=== PATIENT | female | born 1945 | race Caucasian/White ===

== ENCOUNTER 2016-12-07 14:28 | Inpatient (IN) | payer MEDICARE ==
[~2016-12-07] VITALS: Ht 170.2 cm; Wt 85.0 kg
[2016-12-07 14:31] VITALS: BP 105/71; PULSE 105; RESP 17; O2SAT 95
--- NOTE | 2016-12-07 14:40 | ED.REPORT ---
HPI-General Illness Date of Service Dec 07, 2016 ED Provider: The patient is a 71 year old female with no known medical history, who presents to the emergency department complaining of abdominal cramping that first began about 3 weeks ago. She initially thought she had a "flu bug" but her symptoms have worsened in the last few days. She has been having multiple episodes of diarrhea with bloody mucousy stools. She also reports feeling gassy and has not wanted to eat. She has had a fever intermittently. She was seen by a hot knife cutter last week and turned in stool sample kits on Friday. She denies dizziness, chest pain, or shortness of breath. She denies recent antibiotic use or recent travel. She does not take any medications regularly. Nursing Notes Stated Complaint: MAJOR ABDOMINAL DISTRESS Chief Complaint: Female Abdominal Pain Nursing Notes Reviewed: Yes Allergies: Coded Allergies: No Known Allergies (Unverified , 12/07/16) General Time Seen by MD: 14:39 Chief Complaint Abdominal pain Hx Obtained From: Patient Arrived By: Walk-in Sudden in Onset?: No Onset Occurred: More than a week ago... Symptom Duration: Since onset Location: : Abdomen Quality: Cramping, Painful Severity: Current: Moderate Severity: Maximum: Severe Recent Healthcare: No recent hospitalization, Recent doctor visit Similar Sx Previous: No Past Medical History Past Medical History Denies Past Surgical History Hernia repair Family History Noncontributory Smoking History Unknown if Ever Smoker Social History Other Social History: Local resident Ambulatory Status Independent Review of Systems +decreased appetite, feeling gassy Full Review of Systems Constitutional: Reports: Fever (intermittent) Ears / Nose / Throat: Reports: Ear ringing left (chronic, for years) Respiratory: Denies: Shortness of breath Cardiovascular: Denies: Chest pain GI: Reports: Abdominal pain, Anorexia, Diarrhea, Mucousy stool (with blood) Neurologic: Denies: Dizziness Complete sys rev & neg: except as marked. Physical Exam Vital Signs Vital Signs Date Time Temp Pulse Resp B/P Pulse Ox O2 Delivery O2 Flow Rate FiO2 12/07/16 16:45 37.1 105 20 117/60 98 Room Air 12/07/16 14:31 37.1 105 17 105/71 95 Room Air Initial VS: Reviewed Head / Eyes: Atraumatic, Normocephalic, PERRL Neck: Supple, Non-tender, Full range of motion Respiratory: Breath sounds normal, Clear to auscultation, No respiratory distress Lymphatic: No lymphadenopathy Extremities: Vascular intact, Neuro intact, No swelling, No tenderness Skin: Warm, Dry, No cyanosis Neurologic: Alert, Oriented, Nonfocal Psychiatric: Mood/affect normal, Behavior normal, Normal thought content General/Constitutional: Awake, Cooperative Appearance / Presentation: Positive: Ill appearing/not toxic, Uncomfortable Cardiovascular: Regular rhythm, Heart sounds NL, No murmurs, No rubs, Peripheral circulation NL, Pulses = bilaterally Heart Rate / Rhythm: Positive: Tachycardia Abdomen: Atraumatic, Soft, Non-tender, No guarding, No rebound, BS normoactive , No distention, No hernia, No palpable mass, No pulsatile mass Interpretation & Diagnostics Lab Results Interpretation Result Diagram: 12/07/16 1520 12/07/16 1520 Test 12/07/16 15:20 White Blood Count 12.2th/mm3 (3.8-10.1) Red Blood Count 4.80mil/mm3 (3.90-5.20) Hemoglobin 14.7g/dL (12.0-15.6) Hematocrit 42.9% (35.0-46.0) Mean Corpuscular Volume 89.4fL (81-100) Mean Corpuscular Hemoglobin 30.6pg (27.0-35.0) Mean Corpuscular Hemoglobin Concent 34.3% (32.0-37.0) Red Cell Distribution Width 12.3% (12.3-15.4) Platelet Count 374bil/L (150-400) Neutrophils (%) (Auto) 68.7% (40-74) Lymphocytes (%) (Auto) 13.9% (14-46) Monocytes (%) (Auto) 14.7% (4-12) Eosinophils (%) (Auto) 0.7% (0-5) Basophils (%) (Auto) 1.5% (0-3) Sodium Level 137mEq/L (134-144) Potassium Level 3.4mEq/L (3.5-5.2) Chloride Level 97mEq/L (97-108) Carbon Dioxide Level 25mmol/L (18-29) Blood Urea Nitrogen 4mg/dL (8-27) Creatinine 0.46mg/dL (0.57-1.00) Estimat Glomerular Filtration Rate 193mL/min (>59) Glucose Level 109mg/dL (60-99) Lactic Acid Level 1.0mmol/L (0.4-2.0) Calcium Level 8.7mg/dL (8.5-10.1) Magnesium Level 2.3mg/dL (1.6-2.6) Total Bilirubin 0.5mg/dL (0.0-1.2) Aspartate Amino Transf (AST/SGOT) 16U/L (0-50) Alanine Aminotransferase (ALT/SGPT) 16U/L (0-32) Alkaline Phosphatase 69U/L (25-165) Total Protein 5.8g/dL (6.4-8.4) Albumin 2.9g/dL (3.4-5.0) Lipase 6U/L (13-60) CT Abd / Pelvis Interpretation IMPRESSION: Colitis appears present through the descending colon and then more prominently within the sigmoid colon and rectum. No focal mass lesion seen. No sign of abscess formation. The appearance is not suggestive of focal diverticulitis. Dictated by: Vidal Zambrano M.D. on 12/07/2016 at 17:08 Interpretation / Wet Read by: Interpret - Radiologist Re-Eval/Medical Decision Source of Hx: Old records Time of Eval: 17:33 Re-Evaluation/Progress Note: Rechecked the patient. She is still not feeling well. Discussed results, diagnosis, and plan for admission. All questions were addressed. Consultation : Referral / Consult Name: Lesvia Solis MD Consulted With: Hospitalist Requested Call at: 17:36 Call Returned at: 17:54 Senior Asset Manager: Will see patient, Agrees with eval, Agrees with plan, Accepts admit Counseled Regarding: Diagnosis, Lab results, Need for admission Discharge & Departure Primary Impression: Colitis Disposition: ADMITTED TO HOSPITAL Discharge Condition All VS Reviewed: Yes Condition: Stable Referrals: Rodrigue Sheppard MD Attestation Portions of this note were transcribed by Margaret Billy. I, Dr. Nolan personally performed the history, physical exam and medical decision-making; I reviewed and confirmed the accuracy of the information in the transcribed note. Signed by: Nikia Saxena, 12/07/16 at 1800. copies to: Rodrigue Sheppard MD, Shawna L MD Dec 07, 2016 14:40 WenceslaoMargaret Dec 07, 2016 14:45
[2016-12-07] MEDS ORDERED: 0.9% Sodium Chloride 1,000 ML IV ONE ×2 (15:00→18:05)
[2016-12-07 15:57] LABS: EOSINOPHILS % (AUTO) 0.7 % (0-5)
[2016-12-07 15:59] LABS: BASOPHILS % (AUTO) 1.5 % (0-3); MONOCYTES % (AUTO) 14.7 % (4-12); Mean Corpuscular Hemoglobin 30.6 pg (27.0-35.0); Mean Corpuscular Volume 89.4 fL (81-100); NEUTROPHILS % (AUTO) 68.7 % (40-74); Platelet Count 374 bil/L (150-400)
[2016-12-07 16:17] LABS: Magnesium 2.3 mg/dL (1.6-2.6)
[2016-12-07 16:45] VITALS: BP 117/60; PULSE 105; RESP 20; O2SAT 98
--- NOTE | 2016-12-07 17:11 | DRSVH ---
PROCEDURE: CT ABDOMEN AND PELVIS WITH CONTRAST ([id number]) INDICATIONS: rectal/abdominal pain TECHNIQUE: After the administration of intravenous contrast, 5 mm thick sections acquired from the diaphragm to the symphysis. 5 mm coronal and sagittal reformats were acquired. For radiation dose reduction, the following was used: automated exposure control, adjustment of mA and/or kV according to patient siz e. COMPARISON: None. FINDINGS: Image quality: Excellent. ABDOMEN: Lung bases: Lung bases are clear. Heart size is normal. Solid organs: Liver and spleen are normal in size and enhancement. Gallbladder appears normal. Darron iary system is non dilated. Pancreas enhances normally. No adrenal nodules. Kidneys demonstrate no rmal size and enhancement, without hydronephrosis. Peritoneum and bowel: Small bowel loops demonstrate normal wall thickness and caliber. The colon on the right and through the transverse colon appears normal except for mild to moderate colonic obstip ation. Within the descending colon mural thickening is present with a slight degree of adjacent jose carlos colonic edema. No free fluid or air. Nodes and vessels: No retroperitoneal or mesenteric adenopathy by size criteria. Aorta and inferior vena cava are normal in size. Miscellaneous: No ventral hernias. PELVIS: Genitourinary: Bladder wall thickness is normal. Miscellaneous: No inguinal hernias or adenopathy. The pattern of descending colonic mural thickenin g extends through the sigmoid colon and into the rectum with an appearance most consistent with colit is. A malignant appearing mass is not found. Bones: No suspicious bony lesions. No vertebral body compression fractures. IMPRESSION: Colitis appears present through the descending colon and then more prominently within th e sigmoid colon and rectum. No focal mass lesion seen. No sign of abscess formation. The appearanc e is not suggestive of focal diverticulitis. Dictated by: Vidal Zambrano M.D. on 12/07/2016 at 17:08 Approved by: Vidal Zambrano M.D. on 12/07/2016 at 17:10
[2016-12-07] MEDS ORDERED: Alum-Mag Hydrox-Simeth 30 mL Suspension PO PRN ×2 (18:05→18:35)
[2016-12-07 18:30] VITALS: BP 97/55; PULSE 78; RESP 20; O2SAT 98
[2016-12-07] MEDS ORDERED: Ondansetron 2 mg/mL 2 mL Inj IVPUSH PRN (18:35)
[2016-12-07] MEDS ORDERED: HYDROcodone-APAP 5-325 mg Tablet PO PRN (18:35)
[2016-12-07 18:43] VITALS: BP 97/67; PULSE 70; RESP 18; O2SAT 97
--- NOTE | 2016-12-07 18:49 | PCM.HPMED ---
Subjective Date of Service Dec 07, 2016 Primary Provider: Admitting Physician: Lesvia Solis MD Primary Care Physician: Stefan Molina MD Attending Physician: Lesvia Solis MD Chief Complaint: abd cramping and diarrhea with blood tinged mucous and stools History of Present Illness: Sudden 1st week in November of diarrhea preceeded by abd cramping. Small volume like a few TBSP. Freq, up to 10 per day. Worse with solid food so mostly liquids. Possible weight loss of 10 pounds or more. She says stool is small flakes of light brown "laced with mucus and blood tinged". Has pink tinged mucus when she wipes. Does not have abd pain other than the cramping before the BM's. Has some generalized muscle aches. Last sev days occl fever to 101- 102 with feeling of slight coolness alternating with being a little overheated. Infreq nausea with dry heaves, maybe twice the past week. Feels more "spacey". Lives on 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 No recent travel or camping. Saw Dr Sheppard 3 days ago and stool tests ordered, she has not heard results. She didn't get the blood test (TSH) he ordered yet. SHe has f/u appt December 25 to schedule colonoscopy. Review of Systems: negative except that when she gets dehydrated her vision isn't quite as sharp. Has had left tinnitus for years. 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 Hx Alcohol Use: No Hx Substance Use: Yes (MARIJUANA less than once a week) Hx Tobacco Use: Yes Smoking Status: Former Smoker (quit smoking when became ill a few weeks ago, before that rolling her own cig), Unknown if Ever Smoker Living Arrangement: Alone Additional Information single, has son who lives in [facility], working on [employer] paperwork which will be her friends Gwen and Leroy Exam Vital Signs Vital Sign - Last Date Time Temp Pulse Resp B/P Pulse Ox O2 Delivery O2 Flow Rate FiO2 12/07/16 18:30 36.8 78 20 97/55 98 Room Air Exam Alert and oriented, a bit tearful HEENT: unremarkable Neck: no JVD, carotids 2+ Heart reg Lungs clear Abd: soft, normal bowel tones, mild LLQ tenderness, no apparent masses or HSM Extrem: no pedal edema Neuro: no apparent deficits, hand finance business manager strong and equal, raise both legs against resistance Lab and Diagnostics Result Diagram: 12/07/16 1520 12/07/16 1520 Assessment & Plan Persistent diarrhea with blood tinged mucus, etiology not yet determined - Saw Dr Sheppard 3 days and stool studies done. WBC's reported positive but not sure of other results - Addtional stool studies sent by ED doc - IVF and med for pain and nausea - Discuss with GI tomorrow, if stool studies all return negative then possible proceed with colonoscopy Mild Hypokalemia, will add potassium to IVF VTE Prophylaxis: Sub-Q Enoxaparin Resuscitation Status: CPR: Attempt Resuscitation Time spent 70 minutes Lesvia Solis MD Dec 07, 2016 18:49
--- NOTE | 2016-12-07 19:28 | NUR ---
Admit Pt. arrived around 1899. Report given by Sherie Strickland RN nurse. Orders received. Pt. has peripheral IV intact and patent. Pt. is alert and oriented x3. Pt. is on RA. Pt. has used the restroom several times so far. Will continue to monitor.
[2016-12-07] MEDS: 0.9% NaCl + KCl 20 mEq/L 1,000 ML IV SCH (19:53)
[2016-12-07] MEDS: Sodium Chloride LOK Flush 10 mL Syringe IVFLUSH SCH (19:53)
[2016-12-08] MEDS: Sodium Chloride LOK Flush 10 mL Syringe IVFLUSH SCH ×4 (00:19→21:44)
[2016-12-08 00:40] VITALS: BP 106/68; PULSE 96; RESP 16; O2SAT 94
[2016-12-08 05:15] VITALS: BP 99/67; PULSE 94; RESP 16; O2SAT 93
[2016-12-08] MEDS: 0.9% NaCl + KCl 20 mEq/L 1,000 ML IV SCH ×3 (05:30→15:58)
[2016-12-08 06:50] LABS: Mean Corpuscular Hemoglobin 30.8 pg (27.0-35.0); Mean Corpuscular Volume 90.6 fL (81-100)
--- NOTE | 2016-12-08 13:34 | NUR ---
CROUCH explained and signed. Copy of CROUCH given to pt
[2016-12-08 13:36] VITALS: BP 98/65; PULSE 104; RESP 19; O2SAT 95
--- NOTE | 2016-12-08 13:44 | NUR ---
Social Work: Initial Assessment Data: EMR reviewed. Pt is a 71 y/o female admitted for colitis, diarrhea, dehydration as per H&P. Pt has GI Consult scheduled today. SW met with pt at bedside to complete initial assessment. Pt was alert and oriented x3. SW confirmed the following: PCP is Dr. Stefan Molina MD. Insurance is [facility]. Pt does not have VA or [facility] insurance. Pt has no history of SNF or HH services. Patient has no DME. Pt is independent at baseline. Pt lives alone in a single level home on [facility]. SW discussed DPOA/advanced directive and confirmed pt has completing paperwork. SW encouraged pt to bring a copy of DPOA/advanced directive paperwork to hospital once complete. SW confirmed that pt will have no foreseen needs at discharge and will transport home via POV with friend Carmencita Lopez ([phone]). SW will continue to follow. Assessment: Pt will have no foreseen needs at discharge and will transport home via POV. Plan: Pt will have no foreseen needs at discharge and will transport home via POV. SW will continue to follow. ARLEEN Andujar Addendum: 12/08/16 at 1355 by LAUREN RAMOS Amended: Links added.
[2016-12-08 14:00] VITALS: PULSE 99
--- NOTE | 2016-12-08 14:32 | PCM.PNMED ---
Subjective Date of Service Dec 08, 2016 Subjective Still frequent small stools with blood tinged mucus and abdominal cramping. Not noting any improvement. Exam Vital Signs Vital Sign - Last Date Time Temp Pulse Resp B/P Pulse Ox O2 Delivery O2 Flow Rate FiO2 12/08/16 13:36 36.7 104 19 98/65 95 Room Air Intake and Output 12/07/16 12/07/16 12/08/16 Cumulative From/Thru 15:00 23:00 07:00 12/07/16 14:31 - 12/08/16 06:38 Intake Total 0 ml 1723 ml 1723 ml Output Total 0 ml 1050 ml 1050 ml Balance 0 ml 673 ml 673 ml Intake Oral 0 ml 800 ml 800 ml IV Total 923 ml 923 ml Output Urine Total 0 ml 0 ml Urine/Stool Mix 1050 ml 1050 ml Exam General: Alert and oriented, no acute distress Heart: Regular Lungs: Clear Abdomen: Soft, tones are present, mild tenderness across lower abdomen Extremities: No pedal edema IVs and Medications Medications Reviewed: Medications were reviewed in detail Lab and Diagnostics Result Diagram: 12/08/1620 12/08/16 0620 Assessment & Plan Persistent diarrhea with blood tinged mucus, etiology not yet determined, stool testing neg for infections, consider IBD - Dr Valdez, GI, consulted today which is much appreciated, arranging colonoscopy for tomorrow morning and then most likely she can be discharged home - contine IVF and med for pain and nausea Mild Hypokalemia, resolved (K 3.4 to 3.6 this am) potassium continued in IVF VTE Prophylaxis: Sub-Q Enoxaparin Resuscitation Status: CPR: Attempt Resuscitation Lesvia Solis MD Dec 08, 2016 14:32
--- NOTE | 2016-12-08 15:47 | CONS ---
[address] [address] CONSULTATION REPORT PATIENT: VIDYA TARIQ : 1945 MR#: [id number] ADMIT: 12/07/2016 JOB ID: [id number] DATE OF SERVICE: 12/08/2016 REASON FOR CONSULTATION: Mucousy diarrhea. HISTORY OF PRESENT ILLNESS: This is a 71-year-old, female with history of psoriasis, right inguinal surgery repair at age 23. Presents here for mucousy bloody diarrhea since November 2016. The patient complains of loose stools, 10 times per day, with blood that covers the stools but never to the entire toilet. The patient also reports some weight loss, approximately 10 pounds or more during this time. The patient called EMS because of her loose stools and then was brought here to the emergency department for further evaluation. The patient did have a fever of 101-102 in the past. The patient never had an EGD but had a colonoscopy greater than 20 years ago with unknown results. The patient denies family history of colon cancer, inflammatory bowel disease, or celiac disease. The patient also complains of left lower quadrant pain and suprapubic pain during this time. The patient denies melena, nausea, vomiting, hematemesis. 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 PAST SURGERIES: Right inguinal hernia repair, age 23. No known drug allergies. HOME MEDICATIONS: None. 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 She does use marijuana less than once a week. History of smoking. No IV drug use. No alcohol. FAMILY HISTORY: Negative for colon cancer, inflammatory bowel disease, or celiac disease. REVIEW OF SYSTEMS: The patient denies headache, blurred vision, nausea, vomiting, chest pain, shortness of breath. Positive for abdominal pain. No skin rash or joint pain. Vital signs: Upon presentation, temperature is 36.7, pulse 104, respiratory rate 19, blood pressure 98/65, satting 95% room air. General: No acute distress. Head: No scars. Eyes: Anicteric. Neck supple. Lungs: Clear to auscultation bilaterally. Cardiovascular: Regular. Abdomen: Soft, nondistended. Positive left lower quadrant pain to palpation. Normoactive bowel sounds. Extremities: No cyanosis, clubbing, edema. Labs shows white count 11.1, hemoglobin 13.4, hematocrit 39, platelet count of 395. Sodium 139, potassium 3.6, chloride 103, bicarb 24, BUN 3, creatinine 0.4. Glucose 120. Lactic acid 1.0. Calcium 8.1, magnesium 2.3. Total bili 0.5. AST 16, ALT 16, alk phos 69, total protein 5.8, albumin 2.9, lipase 6. TSH 3.29. CT of the abdomen and pelvis, performed November 06, 2016, shows thickening within the descending colon and sigmoid colon with extension into the rectum. Was consistent with "colitis." No evidence of diverticulitis. No focal masses were seen. Stool studies, including C. diff, stool culture, and ova and parasites, and Giardia are negative on December 07, 2016. ASSESSMENT AND PLAN: This is a 71-year-old female with history of psoriasis, right inguinal hernia repair, presents with mucousy bloody diarrhea, since November 2016. Suspicious for inflammatory bowel disease. RECOMMENDATIONS: 1. Clear liquid diet, n.p.o. except for meds when the patient starts taking her GoLYTELY prep on today. 2. GoLYTELY prep. 3. Colonoscopy to be scheduled for tomorrow. After the colonoscopy is performed, the patient can follow up in GI clinic and Can be discharged with followup as outpatient in GI clinic. TANESHA
[2016-12-08] MEDS ORDERED: PEG/Electrolytes 4,000 mL Solution PO ONE (16:00)
[2016-12-08] MEDS: Ondansetron 2 mg/mL 2 mL Inj IVPUSH PRN ×2 (16:55→21:25)
--- NOTE | 2016-12-08 17:36 | NUR ---
Colonoscopy prep Began Colyte at 16:00. Tolerated > 1/4 jug, then vomited. Zofran given with good effect. Multiple brown diarrheal bowel movements. Encouraging small sips with other liquids in between and to notify nursing if she becomes nauseated again. Frequent rounding.
[2016-12-08 20:25] VITALS: BP 119/71; PULSE 118; RESP 18; O2SAT 94
--- NOTE | 2016-12-08 22:34 | NUR ---
GI; finished colyte prep. Zofran given once this shift for queasiness with stated relief. Bms running between light brown liquid with few soft chunks bm to runny brown bm at this time.
[2016-12-09] VITALS (9 sets, daily range): BP systolic 86–192; BP diastolic 48–104; PULSE 81–116; RESP 13–22; O2SAT 90–100
[2016-12-09] MEDS: 0.9% NaCl + KCl 20 mEq/L 1,000 ML IV SCH ×3 (00:55→21:34)
--- NOTE | 2016-12-09 04:42 | NUR ---
GI; up to bsc numerous times. Bms liquid light brown at this time. Addendum: 12/09/16 at 0445 by CASPER MONAE RN npo
[2016-12-09 06:19] LABS: Mean Corpuscular Hemoglobin 30.2 pg (27.0-35.0); Mean Corpuscular Volume 88.8 fL (81-100)
[2016-12-09] MEDS: 0.9% Sodium Chloride 1,000 ML IV SCH ×3 (07:51→08:34)
[2016-12-09] MEDS ORDERED: fentaNYL-PF 50 mCg/mL 2 mL Inj IVPUSH PRN (07:55)
[2016-12-09] MEDS ORDERED: KCl 40 mEq/D5W 500 mL 40 MEQ in IV Premix 500 EACH IV ONE (08:40)
[2016-12-09] MEDS ORDERED: Mesalamine 1.2 Gm ER Tablet PO SCH (10:14)
[2016-12-09] MEDS: Sodium Chloride LOK Flush 10 mL Syringe IVFLUSH SCH ×2 (10:26→16:52)
--- NOTE | 2016-12-09 10:45 | NUR ---
chills/tachy/hypertensive pt returned from Colonoscopy and Xray, having severe chills, but fever only 36.8 ax, BP 192/104, HR 116, has already had several episode of small amts (10cc) bloody mucous rectally. Dr Ceballos notified. Will begin meds ordered by By Dr Valdez immediately
[2016-12-09] MEDS: MethylprednisoLONE Sodium Succinate 40 mg/mL Inj IVPUSH SCH ×2 (10:51→16:52)
[2016-12-09 11:05] LABS: APPEARANCE,URINE HAZY (CLEAR,HAZY); COLOR,URINE YELLOW (YELLOW); OCCULT BLOOD,URINE SMALL (NEGATIVE)
--- NOTE | 2016-12-09 12:14 | NUR ---
Social Work-readiness for discharge: Data:EMR Reviewed. Pt is on day 2 of hospitalization for colitis per H&P. Pt is not medically stable anticipate 1-2 more days. Pt resides at home on [facility] and per RN notes has been up independent in her room. Pt to have coloscopy today. Pt will likely benefit from priority boarding pass at discharge. Pt's friend to provide transport home at discharge. Sw will continue to follow. Assessment:pt who is independent at baseline. Plan:Pt to discharge home when medically stable via POV. will likely benefit from priority boarding pass at discharge. Sw will continue to follow. ARLEEN Shafer
--- NOTE | 2016-12-09 12:43 | DRSVH ---
PROCEDURE: X-RAY CHEST, TWO VIEWS ([id number]) INDICATIONS: fever, hypoxia TECHNIQUE: 2 views of the chest were acquired. COMPARISON: None. FINDINGS: Surgical changes and devices: None. Lungs and pleura: No pleural effusions or pneumothorax. Air space opacity involving the left lung b ase. Interstitium is prominent. Mediastinum: Mediastinal contours are normal. Heart size is normal. Bones and chest wall: No suspicious bony abnormalities. Soft tissues appear unremarkable. IMPRESSION: 1. Left basilar atelectasis versus aspiration or pneumonia. Correlate clinically. Dictated by: Grabiel Powell [facility] Interpreted: Vidal Zambrano MD on 12/09/2016 at 12:42 Transcribed by: PROMISE on 12/09/2016 at 12:43 Approved by: Vidal Zambrano M.D. on 12/09/2016 at 17:09
--- NOTE | 2016-12-09 12:47 | NUR ---
Case Management: IMM given and explained to pt. Sonia PALUMBO RN
[2016-12-09] MEDS ORDERED: MESALAMINE 1.2 GM PO SCH (16:00)
--- NOTE | 2016-12-09 16:04 | PCM.PNMED ---
Subjective Date of Service Dec 09, 2016 Subjective Reports chills earlier otherwise denies any new issues/complaints. Denies any cough, SOB, sore throat, rhinorrhea Exam Vital Signs Vital Sign - Last Date Time Temp Pulse Resp B/P Pulse Ox O2 Delivery O2 Flow Rate FiO2 12/09/16 13:34 36.9 94 19 91/56 92 Room Air 12/09/16 09:08 2 Intake and Output 12/08/16 12/08/16 12/09/16 Cumulative From/Thru 15:00 23:00 07:00 12/07/16 14:31 - 12/09/16 06:55 Intake Total 2672 ml 4021 ml 8416 ml Output Total 1712 ml 3600 ml 6362 ml Balance 960 ml 421 ml 2054 ml Intake Oral 1550 ml 2980 ml 5330 ml IV Total 1122 ml 1041 ml 3086 ml Output Urine Total 1700 ml 200 ml 1900 ml Stool Total 12 ml 12 ml Urine/Stool Mix 3400 ml 4450 ml General: Alert, Cooperative, No Acute Distress Head: Normal Eyes: Scleral Anicteric Nose: Mucous Membr Moist/[place] Mouth: Mucous Membr Moist/[place] Neck: Supple Chest & Lungs: Chest Wall Normal, Clear to auscultation & percussion Cardiovascular: Regular Rate/Rhythm Pulses: NL carotid, radial, femoral, DP, PT Abdomen: Non-tender, Non-distended, Normoactive bowel tones, Soft Extremities: No cyanosis/clubbing/edma bilat Neurological: Grossly Neurologically Intact, Normal Speech IVs and Medications Medications Reviewed: Medications were reviewed in detail Lab and Diagnostics Result Diagram: 12/09/16 0550 12/09/16 0550 Assessment & Plan 71-year-old female with history of psoriasis presents with complaint of mucousy bloody diarrhea since early November 2016. # Acute fever/chills, not present on admission. Unclear source at this time but possibly due to acute urinary tract infection that may have been present on admission - UA is positive - CXR 12/09/16: "Left basilar atelectasis versus aspiration or pneumonia" although clinically without any respiratory symptoms - Check blood cultures x 2 - Followup final urine culture result - Start empiric IV Ceftriaxone for presumed UTI as source of fever and infection - Continue with supportive care # Acute on chronic diarrhea, present on admission. Seems to be improving - Stool PCR negative - Appreciate GI consult. Will followup with recommendations - Post colonoscopy earlier today. Followup with official GI report and recommendations. # Acute hypokalemia. Present on admission. Ongoing - Replete and followup # History of psoriasis. - Further followup with dermatology as outpatient. Dispo: 2-3 days pending GI issues and fever workup. VTE Prophylaxis: Sub-Q Enoxaparin Resuscitation Status: CPR: Attempt Resuscitation Pablo Ceballos Dec 09, 2016 16:04
[2016-12-09] MEDS ORDERED: Potassium Chloride 20 mEq SR Tablet PO ONE (16:15)
--- NOTE | 2016-12-09 16:43 | ENDO ---
[address] [address] ENDOSCOPY PROCEDURE PATIENT: VIDYA TARIQ : 1945 MR#: [id number] ADMIT: 12/07/2016 JOB ID: [id number] DATE: 12/09/2016 PREOPERATIVE DIAGNOSIS(ES): Bloody diarrhea and weight loss. POSTOPERATIVE DIAGNOSIS(ES): 1. Marked erythema and ulcerations with friability from 90 cm to the rectum concerning for ulcerative colitis status post biopsy. 2. Normal terminal ileum status post biopsy. ANESTHESIA: 1. Fentanyl 125 mcg. 2. Versed 5 mg IV administered. COMPLICATIONS: None. BLOOD LOSS: Minimal. DESCRIPTION OF PROCEDURE: After risks and benefits were explained to the patient, informed consent was obtained. After anesthesia administered, colonoscope was inserted from the rectum to the terminal ileum and mucosa carefully examined. Prep of the patient was poor to suboptimal. After the procedure was done, the scope withdrawn and the procedure terminated. FINDINGS: Upon inspection of the anus, there were no masses, hemorrhoids, ulcers, fissures that were seen. Throughout the entire examination, there was markedly loss of architecture and vascularity with severe erythema with friability and ulcerations in continuous fashion from 90 cm from the anus to the rectum concerning for ulcerative colitis. Several biopsies were taken at this region. When the scope was then passed 90 cm, the colonic mucosa appeared normal. Terminal ileum also appeared normal. Biopsies taken of terminal ileum and also random of colon. Retroflexion was not performed. IMPRESSIONS: Loss of architecture and vascularity with Marked erythema with ulcerations and friability in continuous fashion from 90 cm in the descending colon to the rectum concerning for ulcerative colitis left sided status post biopsy. RECOMMENDATIONS: 1. Await pathology results. 2. Lialda 4.8 g by mouth once a day. 3. start methylprednisone or Solu-Medrol 60 mg IV t.i.d. 4. Rowasa enemas 6 g per rectum qhs.. 5. serial abdominal exams 6. monitor daily frequency of bm. Will continue to follow. MTDD
[2016-12-09] MEDS: cefTRIAXone Inj 2,000 MG in Dextrose 5% Minibag Plus 50 ML IV SCH (18:02)
[2016-12-09] MEDS ORDERED: FUR20 PO (18:40)
[2016-12-10] MEDS: Sodium Chloride LOK Flush 10 mL Syringe IVFLUSH SCH ×4 (00:15→23:55)
[2016-12-10] MEDS: MethylprednisoLONE Sodium Succinate 40 mg/mL Inj IVPUSH SCH ×4 (00:15→20:23)
[2016-12-10] MEDS: MESALAMINE RECTAL SCH ×2 (00:15→20:23)
[2016-12-10 01:37] VITALS: BP 104/68; PULSE 78; RESP 16; O2SAT 93
--- NOTE | 2016-12-10 03:47 | NUR ---
GI Continues to have multiple small, mucous, BMs. Enema instilled for approx 30 minutes before urge to defecate. Steady gait for BSC use, independent in room. IV fluids infusing. Hourly rounding ongoing.
[2016-12-10] MEDS: 0.9% Sodium Chloride 1,000 ML IV SCH (03:56)
[2016-12-10 05:52] VITALS: BP 110/62; PULSE 82; RESP 16; O2SAT 95
[2016-12-10 06:11] LABS: EOSINOPHILS % (AUTO) 0 % (0-5)
[2016-12-10 06:17] LABS: BASOPHILS % (AUTO) 0.3 % (0-3); MONOCYTES % (AUTO) 3.6 % (4-12); Mean Corpuscular Hemoglobin 30.9 pg (27.0-35.0); Mean Corpuscular Volume 90.4 fL (81-100); NEUTROPHILS % (AUTO) 82.6 % (40-74); Platelet Count 349 bil/L (150-400)
[2016-12-10 06:28] LABS: INR 1.16 ratio
[2016-12-10] MEDS: 0.9% NaCl + KCl 20 mEq/L 1,000 ML IV SCH ×3 (08:02→18:59)
--- NOTE | 2016-12-10 08:28 | PCM.PNSURG ---
Subjective Date of Service: Dec 10, 2016 Date of Service: Dec 10, 2016 Visit Information: Subjective: bm frequency same but less in amount and no further bleeding. await lialda. currently on iv steroids and rowasa enemas. s/p colon yesterday Postop General: No Complaints Objective Vital Sign- Last 8 Hours Date Time Temp Pulse Resp B/P Pulse Ox O2 Delivery O2 Flow Rate FiO2 12/10/16 05:52 36.6 82 16 110/62 95 Room Air 12/10/16 01:37 36.7 78 16 104/68 93 Room Air Intake and Output- Last 8 Hour 12/10/16 Cumulative From/Thru 07:00 12/07/16 14:31 - 12/10/16 06:40 Intake Total 2427 ml 06302 ml Output Total 1750 ml 91629 ml Balance 677 ml 3176 ml Intake Oral 400 ml 8330 ml IV Total 2027 ml 5713 ml Output Urine Total 750 ml 5400 ml Stool Total 1000 ml 1017 ml Urine/Stool Mix 4450 ml # Bowel Movements 1 1 General: Oriented X3 Neck: Supple Lungs: Clear to Auscultation Heart: Exam Unremarkable Abdomen: Benign, Soft, Appropriately tender, Non-distended, Normoactive bowel tones Extremities: Distal Pulses Palpable Result Diagram: 12/10/16 0533 12/10/16 0533 Assessment & Plan Impression This is a 71-year-old female with history of psoriasis, right inguinal hernia repair, presents with mucousy bloody diarrhea, since November 2016. Suspicious for inflammatory bowel disease. s/p colon 12/09/2016- IMPRESSIONS: Loss of architecture and vascularity with Marked erythema with ulcerations and friability in continuous fashion from 90 cm in the descending colon to the rectum concerning for ulcerative colitis left sided status post biopsy. RECOMMENDATIONS: 1. Await pathology results. 2. Lialda 4.8 g by mouth once a day. 3. start methylprednisone or Solu-Medrol 60 mg IV t.i.d. 4. Rowasa enemas 6 g per rectum qhs.. 5. serial abdominal exams 6. monitor daily frequency of bm. RECOMMENDATIONS: 1. advance to soft low residue diet 2. cont iv steroids 60mg iv tid 3. lialda 4.8g po qday 4. Rowasa enemas 6 g per rectum qhs.. 5. serial abdominal exams 6. monitor daily frequency of bm will cont to follow Problems: VTE Prophylaxis: Sub-Q Enoxaparin Resuscitation Status: CPR: Attempt Resuscitation Stefan Valdez MD Dec 10, 2016 08:28
[2016-12-10] MEDS: Mesalamine 1.2 Gm ER Tablet PO SCH (11:25)
--- NOTE | 2016-12-10 11:52 | PATH ---
SURGICAL PATHOLOGY Attending Physician:Stefan Valdez MD CASE STATUS: Signed Out PATIENT NAME: VIDYA TARIQ PID: [id number] : 1945 DATE COLLECTED:12/09/2016 17:33 SPECIMEN: 1: Ileum, Biopsy 2: Colon, Biopsy 3: Colon, Biopsy CLINICAL HISTORY: 1). TERMINAL ILEUM BIOPSY 2). RANDOM COLON BIOPSY 3). ERYTHEMA ULCERATIONS STARTING AT 90CM BIOPSY FINAL DIAGNOSIS: 1.TERMINAL ILEUM BIOPSY: FRAGMENTS OF TERMINAL ILEUM MUCOSA WITH CHRONIC INFLAMMATION AND FOCAL SUPERFICIAL MUCOSAL EROSION. Negative for granulomas. Negative for dysplasia and malignancy. 2.RANDOM COLON BIOPSY: SINGLE SMALL FRAGMENT OF COLON MUCOSA WITH INCREASED INTRAEPITHELIAL LYMPHOCYTES WITH AN ASSOCIATED INTRAMUCOSAL LYMPHOID AGGREGATE (CHANGES CONSIDERED NONSPECIFIC). Negative for dysplasia and malignancy. 3.BIOPSIES OF COLON STARTING AT 90 CM: MODERATELY ACTIVE COLITIS WITH ASSOCIATED CRYPTITIS AND CRYPT ABSCESSES WITHOUT SIGNIFICANT ARCHITECTURAL DISTORTION (SEE COMMENT). ICD10 code K51.9 NOTE: The changes present in part 3 are those of an active colitis without morphologic evidence of chronicity. Possibilities of infection, drug-induced inflammation, and diverticular disease should be considered. Inflammatory bowel disease is also a possibility; however, the process does not appear chronic. GROSS DESCRIPTION: The specimen is received in three formalin filled containers labeled with the patient's name. 1). The specimen is sublabeled " TI " and consists of 2 portions of tissue which aggregate to 0.3 x 0.2 x 0.2 CM. The specimen is entirely submitted in cassette 1A. 2). The specimen is sublabeled "random colon" and consists of a 0.3 x 0.3 x 0.3 CM portion of tissue which is entirely submitted in cassette 2A. 3). The specimen is sublabeled "erythema ulcerations starting at 90 CM" and consists of 4 portions of tissue which aggregate to 0.3 x 0.3 x 0.2 CM. The specimen is entirely submitted in cassette 3A. 12/09/2016 [facility] MICRO DESCRIPTION: See diagnosis. ICD-9 CODES: CPT CODES: 1: 31838 2: 02226 3: 80980 Electronically Signed Out Haile Sullivan MD [facility] Pathology [facility] [address] [place] [id number] Technical component performed at [facility], [address], [place], [address]
--- NOTE | 2016-12-10 13:37 | NUR ---
Social Work-continued d/c planning: Data:EMR Reviewed. Pt is on day 3 of hospitalization for colitis per H&P. Pt is not medically stable anticipate 2-3 more days. Pt resides at home alone on [facility]. RN states that pt would like to speak with SW. SW followed up with pt at bedside, SW role explained. Pt has concerns about after care post hospital, pt feels like she may need SNF. SW explained that if pt is moving and does not have RN needs them pt would not qualify. SW discussed services and explained pt would need to be homebound, SW to follow for these needs. SW did speak with [facility] and they do service [facility]. Pt has concerns about medications, SW explained that if pt has RX coverage through insurance most medications are covered with copay. SW also discussed applying for Medicaid. Pt's friend to transport home. SW will continue to follow. Assessment:Pt who is independent at baseline. Plan:Anticipate pt to discharge home when medically stable. R/O HH services. SW will continue to follow. ARLEEN Shafer
[2016-12-10 14:33] VITALS: BP 113/76; PULSE 81; RESP 20; O2SAT 93
--- NOTE | 2016-12-10 15:59 | NUR ---
NUTRITION ASSESSMENT: ASSESS:71 YO female admitted for colitis, diarrhea and dehydration. Pt s/p colonoscopy on 12/09. Pt has been NPO/CL x 3 days with hopes of being able to advance diet today. 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 LABS: Reviewed. MEDS: Reviewed. GI: BM x 1 (12/10), diarrhea continues. CURRENT WT: 84.4 kg. Admit wt: 78.7 kg. DIET: Clear Liquids. Po intake 25%. EST. NEEDS: 0911-5286 kcals (25-30 kcals/kg BW), 85-100 g protein (1.0-1.2 g/kg BW) NUTRITION DIAGNOSIS: 1.) Inadequate oral intake related to decreased ability to consume sufficient energy and altered GI function as evidenced by current NPO/clear liquid diets x 3 days. NUTRITION INTERVENTION: 1.) Will add ensure clear to all trays while on clear liquid diet. 2.) Will continue to await hopeful advancement of diet with good tolerance in the next 1-2 days. MONITOR / EVAL: Diet advancement / tolerance, labs, nutritional status. Follow per high nutritional risk guidelines.
--- NOTE | 2016-12-10 17:16 | PCM.PNMED ---
Subjective Date of Service Dec 10, 2016 Subjective Denies any new issues/complaints. Exam Vital Signs Vital Sign - Last Date Time Temp Pulse Resp B/P Pulse Ox O2 Delivery O2 Flow Rate FiO2 12/10/16 14:33 36.6 81 20 113/76 93 Room Air 12/09/16 09:08 2 Intake and Output 12/09/16 12/09/16 12/10/16 Cumulative From/Thru 15:00 23:00 07:00 12/07/16 14:31 - 12/10/16 06:40 Intake Total 600 ml 2600 ml 2427 ml 25443 ml Output Total 2755 ml 1750 ml 23134 ml Balance 600 ml -155 ml 677 ml 3176 ml Intake Oral 2600 ml 400 ml 8330 ml IV Total 600 ml 2027 ml 5713 ml Output Urine Total 2750 ml 750 ml 5400 ml Stool Total 5 ml 1000 ml 1017 ml Urine/Stool Mix 4450 ml # Bowel Movements 1 1 Exam General: Alert, Cooperative, No Acute Distress Head: Normal Eyes: Scleral Anicteric Nose: Mucous Membr Moist/[place] Mouth: Mucous Membr Moist/[place] Neck: Supple Chest & Lungs: Chest Wall Normal, Clear to auscultation bilat Cardiovascular: Regular Rate/Rhythm Pulses: NL carotid, radial, femoral, DP, PT Abdomen: Non-tender, Non-distended, Normoactive bowel tones, Soft Extremities: No cyanosis/clubbing/edema bilat Neurological: Grossly Neurologically Intact, Normal Speech IVs and Medications Medications Reviewed: Medications were reviewed in detail Lab and Diagnostics Result Diagram: 12/10/16 0533 12/10/16 0533 Assessment & Plan 71-year-old female with history of psoriasis presents with complaint of mucousy bloody diarrhea since early November 2016. # Acute on chronic diarrhea, present on admission. Seems to be improving - Stool PCR negative - Post colonoscopy on 12/09: "Marked erythema and ulcerations with friability from 90 cm to the rectum concerning for ulcerative colitis status post biopsy" - Appreciate GI consult. Will followup with recommendations: - Followup pathology results. - Lialda 4.8 g by mouth once a day. - Continue Methylprednisone 60 mg IV t.i.d. - Serial abdominal exams - Monitor daily frequency of bm. - Advance to soft low residue diet # Acute fever/chills, not present on admission. Unclear source at this time but possibly due to acute urinary tract infection that may have been present on admission vs inflammatory GI process - UA is positive - CXR 12/09/16: "Left basilar atelectasis versus aspiration or pneumonia" although clinically without any respiratory symptoms - Followup pending cultures - Empiric IV Ceftriaxone for presumed UTI as source of fever and infection ( started on 12/09) - Continue with supportive care # Acute hypokalemia. Present on admission. Improved - Followup # History of psoriasis. - Further followup with dermatology as outpatient. Dispo: 2-3 days pending GI issues VTE Prophylaxis: Sub-Q Enoxaparin Resuscitation Status: CPR: Attempt Resuscitation Pablo Ceballos Dec 10, 2016 17:16
[2016-12-10] MEDS: cefTRIAXone Inj 2,000 MG in Dextrose 5% Minibag Plus 50 ML IV SCH (17:31)
--- NOTE | 2016-12-10 19:17 | NUR ---
anxiety Patient with extreme anxiety this am and very emotional. patient sarcastic one moment and then crying the next. Patient irritable when asked questions feels overwhelmed with new diagnosis. Patient denies pain. Pat up to bsc stooling very minimal today some red tissue like matter noted in commode.
[2016-12-10 19:43] VITALS: BP 107/70; PULSE 87; RESP 18; O2SAT 93
--- NOTE | 2016-12-11 02:19 | NUR ---
Bowel function Abd, soft with hyperactive BT.Passing flatus and small amts yellow-brown liq. stool.Denies pain and yesica. po fluids and soft diet w/o c/o nausea.VSS.Moving well and ind. with ADLs.Restoril adm.at this time.Resting comfortably.Will cont. to monitor.
[2016-12-11] MEDS: 0.9% NaCl + KCl 20 mEq/L 1,000 ML IV SCH ×2 (04:54→15:57)
[2016-12-11 05:35] VITALS: BP 94/58; PULSE 75; RESP 16; O2SAT 92
[2016-12-11 07:49] LABS: BASOPHILS % (AUTO) 0.4 % (0-3); EOSINOPHILS % (AUTO) 0 % (0-5); Mean Corpuscular Hemoglobin 30.5 pg (27.0-35.0); Mean Corpuscular Volume 90.6 fL (81-100); NEUTROPHILS % (AUTO) 76.6 % (40-74); Platelet Count 354 bil/L (150-400)
[2016-12-11] MEDS: 0.9% Sodium Chloride 1,000 ML IV SCH (07:51)
[2016-12-11 08:25] LABS: Magnesium 2.1 mg/dL (1.6-2.6)
[2016-12-11] MEDS: Sodium Chloride LOK Flush 10 mL Syringe IVFLUSH SCH ×3 (08:30→23:43)
[2016-12-11] MEDS: Mesalamine 1.2 Gm ER Tablet PO SCH (09:12)
[2016-12-11] MEDS: MethylprednisoLONE Sodium Succinate 40 mg/mL Inj IVPUSH SCH ×3 (09:13→20:34)
[2016-12-11 11:44] VITALS: BP 118/75; PULSE 87; RESP 16; O2SAT 93
--- NOTE | 2016-12-11 12:13 | PCM.PNSURG ---
Subjective Date of Service: Dec 11, 2016 Date of Service: Dec 11, 2016 Subjective: bm x 6 overnight. improved from admission. afebrile Postop General: No Complaints Objective Vital Sign- Last 8 Hours Date Time Temp Pulse Resp B/P Pulse Ox O2 Delivery O2 Flow Rate FiO2 12/11/16 11:44 36.8 87 16 118/75 93 Room Air 12/11/16 05:35 36.3 75 16 94/58 92 Room Air Intake and Output- Last 8 Hour 12/11/16 Cumulative From/Thru 07:00 12/07/16 14:31 - 12/11/16 02:00 Intake Total 28628 ml Output Total 24596 ml Balance 3653 ml Intake Oral 18301 ml IV Total 6790 ml Output Urine Total 7900 ml Stool Total 1017 ml Urine/Stool Mix 4450 ml # Bowel Movements 6 General: Oriented X3 Neck: Supple Lungs: Clear to Auscultation Heart: Exam Unremarkable Abdomen: Benign, Soft, Non-tender, Non-distended, Normoactive bowel tones Extremities: Distal Pulses Palpable Result Diagram: 12/11/16 0705 12/11/16 0705 Assessment & Plan Impression This is a 71-year-old female with history of psoriasis, right inguinal hernia repair, presents with mucousy bloody diarrhea, since November 2016. Suspicious for inflammatory bowel disease. s/p colon 12/09/2016- IMPRESSIONS: Loss of architecture and vascularity with Marked erythema with ulcerations and friability in continuous fashion from 90 cm in the descending colon to the rectum concerning for ulcerative colitis left sided status post biopsy. RECOMMENDATIONS: 1. Await pathology results. 2. Lialda 4.8 g by mouth once a day. 3. start methylprednisone or Solu-Medrol 60 mg IV t.i.d. 4. Rowasa enemas 6 g per rectum qhs.. 5. serial abdominal exams 6. monitor daily frequency of bm. RECOMMENDATIONS: 1. soft low residue diet 2. cont iv steroids 60mg iv tid. if bm continue less frequency tomorrow, then decrease iv solumedrol to 60mg iv bid. 3. lialda 4.8g po qday 4. Rowasa enemas 6 g per rectum qhs.. 5. serial abdominal exams 6. monitor daily frequency of bm will cont to follow Problems: VTE Prophylaxis: Sub-Q Enoxaparin Resuscitation Status: CPR: Attempt Resuscitation Stefan Valdez MD Dec 11, 2016 12:13
--- NOTE | 2016-12-11 15:25 | NUR ---
NUTRITION FOLLOW UP: ASSESS:71 YO female s/p colonoscopy MD notes indicate possible ulcerative colitis, on steroids, to undergo abdominal exams; experiencing fever/chills, some improvement in diarrhea and no nausea with po diet. 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 LABS: Reviewed. MEDS: Reviewed. SKIN: [address] 19 GI: BM x 6 (12/11), diarrhea improved CURRENT WT: 84.4 kg. Admit wt: 78.7 kg. DIET: Soft Low Residue. PO 0-100%, variable EST. NEEDS: 1927-4134 kcals (25-30 kcals/kg BW), 85-100 g protein (1.0-1.2 g/kg BW) NUTRITION DIAGNOSIS: 1.) Inadequate oral intake related to decreased ability to consume sufficient energy and altered GI function ---IMPROVING. NUTRITION INTERVENTION: 1.) Will add nutrition supplement to diet order to promote adequate po intake. MONITOR / EVAL: Diet tolerance, labs, GI/nutritional status. Follow per moderate nutritional risk guidelines.
--- NOTE | 2016-12-11 15:26 | PCM.PNMED ---
Subjective Date of Service Dec 11, 2016 Subjective Complains of mild SOB and unsteadiness otherwise Denies any new issues/ complaints. Exam Vital Signs Vital Sign - Last Date Time Temp Pulse Resp B/P Pulse Ox O2 Delivery O2 Flow Rate FiO2 12/11/16 11:44 36.8 87 16 118/75 93 Room Air 12/09/16 09:08 2 Intake and Output 12/10/16 12/10/16 12/11/16 Cumulative From/Thru 15:00 23:00 07:00 12/07/16 14:31 - 12/11/16 02:00 Intake Total 2977 ml 61976 ml Output Total 2500 ml 63458 ml Balance 477 ml 3653 ml Intake Oral 1900 ml 18255 ml IV Total 1077 ml 6790 ml Output Urine Total 2500 ml 7900 ml Stool Total 1017 ml Urine/Stool Mix 4450 ml # Bowel Movements 5 6 Exam General: Alert, Cooperative, No Acute Distress, Oriented x 3 Head: Normal Eyes: Scleral Anicteric Nose: Mucous Membr Moist/[place] Mouth: Mucous Membr Moist/[place] Neck: Supple Chest & Lungs: Chest Wall Normal, Clear to auscultation bilat Cardiovascular: Regular Rate/Rhythm Pulses: NL carotid, radial, femoral, DP, PT Abdomen: Non-tender, Non-distended, Normoactive bowel tones, Soft Extremities: No cyanosis/clubbing/edema bilat Neurological: Grossly Neurologically Intact, CN II-XII grossly intact. Normal Speech. Non focal IVs and Medications Medications Reviewed: Medications were reviewed in detail Lab and Diagnostics Result Diagram: 12/11/1670412/11/16704 Assessment & Plan 71-year-old female with history of psoriasis presents with complaint of mucousy bloody diarrhea since early November 2016. # Acute on chronic diarrhea, present on admission. Seems to be improving - Stool PCR negative - Post colonoscopy on 12/09: "Marked erythema and ulcerations with friability from 90 cm to the rectum concerning for ulcerative colitis status post biopsy" - Appreciate GI consult. Will followup with recommendations: - Lialda 4.8 g by mouth once a day. - Continue Methylprednisone 60 mg IV t.i.d. and titrate down per GI recs - Serial abdominal exams - Monitor daily frequency of bm. - Pathology "negative for dysplasia and malignancy" # Acute fever/chills, not present on admission. Unclear source. Initially suspected urinary tract infection but urine culture looks like contamination - CXR 12/09/16: "Left basilar atelectasis versus aspiration or pneumonia" although clinically without any respiratory symptoms - Stop IV Ceftriaxone that was started for presumed UTI as source of fever and infection (started on 12/09) - Continue with supportive care # Acute hypokalemia. Present on admission. Improved - Followup # History of psoriasis. - Further followup with dermatology as outpatient. Dispo: 2-3 days pending GI issues VTE Prophylaxis: Sub-Q Enoxaparin Resuscitation Status: CPR: Attempt Resuscitation Pablo Ceballos Dec 11, 2016 15:26 Pablo Ceballos Dec 11, 2016 15:26
--- NOTE | 2016-12-11 17:27 | NUR ---
Bowel activity Patient up to [facility] [place] t/o day stools have decreased in quantity. Patient denies pain. patient did have episode where she felt sob and funny feeling per patient . Patient 's vitals were stable when checked and this feeling passed. This was noted to be after am Solumedrol given.
[2016-12-11] MEDS: MESALAMINE RECTAL SCH (20:34)
[2016-12-11 20:45] VITALS: BP 120/77; PULSE 77; RESP 16; O2SAT 92
[2016-12-12] MEDS: 0.9% NaCl + KCl 20 mEq/L 1,000 ML IV SCH ×2 (01:11→18:35)
--- NOTE | 2016-12-12 01:50 | NUR ---
Bowel function Pt has. had only 1 small liq. yellow-brown slool after enema given thus far this shift.VSS,Denies pain and yesica po food and fluids w/o c/o nausea.Up ind. and ind, with ADLs.Sleeping soundly at this time and resting comfortably,Will cont. to monitor.
[2016-12-12 06:55] VITALS: BP 136/82; PULSE 82; RESP 16; O2SAT 93
[2016-12-12] MEDS: 0.9% Sodium Chloride 1,000 ML IV SCH (07:44)
[2016-12-12] MEDS: MethylprednisoLONE Sodium Succinate 40 mg/mL Inj IVPUSH SCH (10:11)
[2016-12-12] MEDS: Mesalamine 1.2 Gm ER Tablet PO SCH (10:11)
--- NOTE | 2016-12-12 10:12 | PCM.PNSURG ---
Subjective Date of Service: Dec 12, 2016 Date of Service: Dec 12, 2016 Subjective: pt had 1 bm overnight. improved from 6 yesterday. will decrease iv steroids to bid. Postop General: No Complaints Objective Vital Sign- Last 8 Hours Date Time Temp Pulse Resp B/P Pulse Ox O2 Delivery O2 Flow Rate FiO2 12/12/16 06:55 36.6 82 16 136/82 93 Room Air Intake and Output- Last 8 Hour 12/12/16 Cumulative From/Thru 07:00 12/07/16 14:31 - 12/12/16 06:00 Intake Total 1246 ml 11608 ml Output Total 32450 ml Balance 1246 ml 4440 ml Intake Oral 66274 ml IV Total 1246 ml 9057 ml Output Urine Total 9900 ml Stool Total 1017 ml Urine/Stool Mix 4450 ml # Bowel Movements 6 General: Oriented X3 Neck: Supple Lungs: Clear to Auscultation Heart: Exam Unremarkable Abdomen: Benign, Soft, Non-tender, Non-distended, Normoactive bowel tones Extremities: Distal Pulses Palpable Result Diagram: 12/11/16 0705 12/11/16 0705 Assessment & Plan Impression This is a 71-year-old female with history of psoriasis, right inguinal hernia repair, presents with mucousy bloody diarrhea, since November 2016. Suspicious for inflammatory bowel disease. s/p colon 12/09/2016- IMPRESSIONS: Loss of architecture and vascularity with Marked erythema with ulcerations and friability in continuous fashion from 90 cm in the descending colon to the rectum concerning for ulcerative colitis left sided status post biopsy. RECOMMENDATIONS: 1. Await pathology results. 2. Lialda 4.8 g by mouth once a day. 3. start methylprednisone or Solu-Medrol 60 mg IV t.i.d. 4. Rowasa enemas 6 g per rectum qhs.. 5. serial abdominal exams 6. monitor daily frequency of bm. RECOMMENDATIONS: 1. soft low residue diet 2. decrease iv steroids 60mg iv bid If pt continues to do well overnight, then ok to change to prednisone 60mg po qday and anticipate d/c home tomorrow (friday ). Pt will need to be on prednisone 60mg po qday x 2 weeks, then taper by 5mg per week till finish. 3. lialda 4.8g po qday 4. Rowasa enemas 6 g per rectum qhs.. 5. serial abdominal exams 6. monitor daily frequency of bm will cont to follow Problems: VTE Prophylaxis: Sub-Q Enoxaparin Resuscitation Status: CPR: Attempt Resuscitation Stefan Valdez MD Dec 12, 2016 10:12
[2016-12-12] MEDS: Sodium Chloride LOK Flush 10 mL Syringe IVFLUSH SCH ×2 (10:15→16:41)
[2016-12-12 12:20] VITALS: BP 117/77; PULSE 76; RESP 16; O2SAT 94
--- NOTE | 2016-12-12 15:26 | PCM.PNMED ---
Subjective Date of Service Dec 12, 2016 Subjective Complains of agitation this morning but says feels more calm and better now. Denies any new issues/complaints. Exam Vital Signs Vital Sign - Last Date Time Temp Pulse Resp B/P Pulse Ox O2 Delivery O2 Flow Rate FiO2 12/12/16 12:20 36.7 76 16 117/77 94 Room Air 12/09/16 09:08 2 Intake and Output 12/11/16 12/11/16 12/12/16 Cumulative From/Thru 15:00 23:00 07:00 12/07/16 14:31 - 12/12/16 06:00 Intake Total 1541 ml 1246 ml 22267 ml Output Total 2000 ml 42436 ml Balance -459 ml 1246 ml 4440 ml Intake Oral 520 ml 61619 ml IV Total 1021 ml 1246 ml 9057 ml Output Urine Total 2000 ml 9900 ml Stool Total 1017 ml Urine/Stool Mix 4450 ml # Bowel Movements 6 Exam General: Alert, Cooperative, No Acute Distress, Oriented x 3 Head: Normal Eyes: Scleral Anicteric Nose: Mucous Membr Moist/[place] Mouth: Mucous Membr Moist/[place] Neck: Supple Chest & Lungs: Chest Wall Normal, Clear to auscultation bilat Cardiovascular: Regular Rate/Rhythm Pulses: NL carotid, radial, femoral, DP, PT Abdomen: Non-tender, Non-distended, Normoactive bowel tones, Soft Extremities: No cyanosis/clubbing/edema bilat Neurological: Grossly Neurologically Intact, CN II-XII grossly intact. Normal Speech. Non focal IVs and Medications Medications Reviewed: Medications were reviewed in detail Lab and Diagnostics Result Diagram: 12/11/1670412/11/16704 Assessment & Plan 71-year-old female with history of psoriasis presents with complaint of mucousy bloody diarrhea since early November 2016. # Acute on chronic diarrhea, present on admission. Seems to be improving - Stool PCR negative - Post colonoscopy on 12/09: "Marked erythema and ulcerations with friability from 90 cm to the rectum concerning for ulcerative colitis status post biopsy" - Appreciate GI consult. Will followup with recommendations: - Lialda 4.8 g by mouth once a day. - Continue Methylprednisone 60 mg IV and titrate down per GI recs - Serial abdominal exams - Monitor daily frequency of bm. - Pathology "negative for dysplasia and malignancy" # Acute fever/chills, not present on admission. Unclear source. Initially suspected urinary tract infection but urine culture looks like contamination - CXR 12/09/16: "Left basilar atelectasis versus aspiration or pneumonia" although clinically without any respiratory symptoms - Stopped IV Ceftriaxone on 12/11 that was started for presumed UTI as source of fever and infection (started on 12/09) - Continue with supportive care # Acute hypokalemia. Present on admission. Improved - Followup # History of psoriasis. - Further followup with dermatology as outpatient. Dispo: likely tomorrow pending GI consult clearance VTE Prophylaxis: Sub-Q Enoxaparin Resuscitation Status: CPR: Attempt Resuscitation Pablo Ceballos Dec 12, 2016 15:25
--- NOTE | 2016-12-12 18:37 | NUR ---
Anxiety P: Pt very anxious at start of shift, SOB, emotionally labile and reporting visual disturbances overnight. I: MD notified, steroid dose decreased. Pt educated on potential side effects of Restoril and Solu-Medrol. Allowed pt decision making and had calm reassuring approach. Extra attention provided from students and staff. E: Pt reports feeling much more comfortable and relaxed this afternoon. Denies SOB and visual disturbances.
[2016-12-12] MEDS ORDERED: MethylprednisoLONE Sodium Succinate 40 mg/mL Inj IVPUSH SCH (20:30)
[2016-12-12] MEDS: MESALAMINE RECTAL SCH (21:00)
[2016-12-12 21:30] VITALS: BP 123/72; PULSE 62; RESP 16; O2SAT 94
[2016-12-13] MEDS: Sodium Chloride LOK Flush 10 mL Syringe IVFLUSH SCH ×3 (01:28→17:11)
[2016-12-13] MEDS: 0.9% NaCl + KCl 20 mEq/L 1,000 ML IV SCH ×2 (04:35→14:35)
--- NOTE | 2016-12-13 04:49 | NUR ---
Bowel function Loose stools decreased, able to keep HS enema in for a little over an hour. Anxiety has been reduced tonight, able to get some sleep. Hourly rounding ongoing.
[2016-12-13 06:20] VITALS: BP 102/68; PULSE 49; RESP 16; O2SAT 92
[2016-12-13 06:33] LABS: Mean Corpuscular Hemoglobin 30.5 pg (27.0-35.0); Mean Corpuscular Volume 90.3 fL (81-100); Platelet Count 337 bil/L (150-400)
[2016-12-13 07:53] LABS: BASOPHILS % (AUTO) 0 % (0-3); EOSINOPHILS % (AUTO) 0 % (0-5); MONOCYTES % (AUTO) 2 % (4-12); NEUTROPHILS % (AUTO) 77 % (40-74)
[2016-12-13 08:31] VITALS: BP 114/63; PULSE 64; RESP 15; O2SAT 94
[2016-12-13] MEDS: Mesalamine 1.2 Gm ER Tablet PO SCH (08:50)
[2016-12-13] MEDS: predniSONE 20 mg Tablet PO SCH (08:54)
--- NOTE | 2016-12-13 11:24 | NUR ---
Anxiety Pt. states anxiety r/t discharge and DC planning. Nutrition consult completed this AM; CareNotes on low fiber diet given to patient. Pt. had some questions about new medication. CareNotes on Lialda given to and reviewed with patient. Stated anxiety was slightly decreased because of these actions.
--- NOTE | 2016-12-13 11:44 | PCM.PNSURG ---
Subjective Date of Service: Dec 13, 2016 Date of Service: Dec 13, 2016 Visit Information: Subjective: bm x 2 overnight. no bleed. Postop General: No Complaints Objective Vital Sign- Last 8 Hours Date Time Temp Pulse Resp B/P Pulse Ox O2 Delivery O2 Flow Rate FiO2 12/13/16 08:31 36.8 64 15 114/63 94 Room Air 12/13/16 06:20 36.7 49 16 102/68 92 Room Air Intake and Output- Last 8 Hour 12/13/16 Cumulative From/Thru 07:00 12/07/16 14:31 - 12/13/16 02:41 Intake Total 99822 ml Output Total 74421 ml Balance 4148 ml Intake Oral 55739 ml IV Total 9715 ml Output Urine Total 47243 ml Stool Total 1017 ml Urine/Stool Mix 5950 ml # Bowel Movements 6 General: Oriented X3 Neck: Supple Lungs: Clear to Auscultation Heart: Exam Unremarkable Abdomen: Benign, Soft, Non-tender, Non-distended, Normoactive bowel tones Extremities: Distal Pulses Palpable Result Diagram: 12/13/1602 12/13/1602 Assessment & Plan Impression This is a 71-year-old female with history of psoriasis, right inguinal hernia repair, presents with mucousy bloody diarrhea, since November 2016. Suspicious for inflammatory bowel disease. s/p colon 12/09/2016- IMPRESSIONS: Loss of architecture and vascularity with Marked erythema with ulcerations and friability in continuous fashion from 90 cm in the descending colon to the rectum concerning for ulcerative colitis left sided status post biopsy. RECOMMENDATIONS: 1. Await pathology results. 2. Lialda 4.8 g by mouth once a day. 3. start methylprednisone or Solu-Medrol 60 mg IV t.i.d. 4. Rowasa enemas 6 g per rectum qhs.. 5. serial abdominal exams 6. monitor daily frequency of bm. RECOMMENDATIONS: 1. soft low residue diet 2. d/c iv steroids 3. prednisone 60mg po qday. . Pt will need to be on prednisone 60mg po qday x 2 weeks, then taper by 5mg per week till finish. 3. lialda 4.8g po qday 4. Rowasa enemas 6 g per rectum qhs. 5. ok to d/c home today from gi perspective 6. pt [facility] Problems: VTE Prophylaxis: Sub-Q Enoxaparin Resuscitation Status: CPR: Attempt Resuscitation Stefan Valdez MD Dec 13, 2016 11:44
[2016-12-13 12:45] VITALS: BP 108/70; PULSE 77; RESP 17; O2SAT 94
--- NOTE | 2016-12-13 12:55 | PCM.PNMED ---
Subjective Date of Service Dec 13, 2016 Subjective Patient seen and examined. Still mild left sided abdominal pain. Denies any fever or chills. Diarrhea has improved and stools more formed. Tolerating diet Exam Vital Signs Vital Sign - Last Date Time Temp Pulse Resp B/P Pulse Ox O2 Delivery O2 Flow Rate FiO2 12/13/16 08:31 36.8 64 15 114/63 94 Room Air 12/09/16 09:08 2 Intake and Output 12/12/16 12/12/16 12/13/16 Cumulative From/Thru 14:59 22:59 06:59 12/07/16 14:31 - 12/13/16 02:41 Intake Total 600 ml 1858 ml 39088 ml Output Total 1150 ml 1600 ml 57652 ml Balance -550 ml 258 ml 4148 ml Intake Oral 600 ml 1200 ml 21945 ml IV Total 658 ml 9715 ml Output Urine Total 150 ml 1100 ml 27622 ml Stool Total 1017 ml Urine/Stool Mix 1000 ml 500 ml 5950 ml # Bowel Movements 6 Exam General: Alert, Oriented X3, Cooperative, No acute Distress Eyes: PERRLA, Scleral Anicteric Mouth: Mouth Normal, Mucous Membranes Moist/[place] Neck: Supple, no Thyromegaly, trachea central. Chest & Lungs: Clear to auscultation & percussion, No adventitious breath sounds, no crackles, no wheeze Cardiovascular: Normal S1, Normal S2, No Murmurs/Rubs/Gallops, Regular Rate/ Rhythm, Pulses: Radial (present and equal), Dorsalis Pedi (present and equal) Abdomen: Soft, mild tenderness left lower quadrant, Non-distended, Normoactive bowel tones. Musculoskeletal: Unremarkable. Normal range of motion, no swollen or erythematous joints Extremities: No edema, no cyanosis, no clubbing. Skin: No rashes. Warm and dry, no erythematous areas Neurological: Grossly neurologically intact, Normal Speech, Sensation Intact Lymphatic: Lymph nodes Cervical and Axillary not palpable. IVs and Medications Medications Reviewed: Medications were reviewed in detail Lab and Diagnostics Laboratory Tests Test 12/13/16 06:02 White Blood Count 10.0th/mm3 (3.8-10.1) Red Blood Count 3.83mil/mm3 (3.90-5.20) Hemoglobin 11.7g/dL (12.0-15.6) Hematocrit 34.6% (35.0-46.0) Mean Corpuscular Volume 90.3fL (81-100) Mean Corpuscular Hemoglobin 30.5pg (27.0-35.0) Mean Corpuscular Hemoglobin Concent 33.8% (32.0-37.0) Red Cell Distribution Width 12.3% (12.3-15.4) Platelet Count 337bil/L (150-400) Neutrophils (%) (Auto) 77% (40-74) Lymphocytes (%) (Auto) 18% (14-46) Monocytes (%) (Auto) 2% (4-12) Eosinophils (%) (Auto) 0% (0-5) Basophils (%) (Auto) 0% (0-3) Metamyelocytes % 1% (0-0) Myelocytes % 2% (0-0) Sodium Level 142mEq/L (134-144) Potassium Level 3.5mEq/L (3.5-5.2) Chloride Level 106mEq/L (97-108) Carbon Dioxide Level 26mmol/L (18-29) Blood Urea Nitrogen 8mg/dL (8-27) Creatinine 0.50mg/dL (0.57-1.00) Estimat Glomerular Filtration Rate 175mL/min (>59) Glucose Level 136mg/dL (60-99) Calcium Level 8.4mg/dL (8.5-10.1) Total Bilirubin 0.3mg/dL (0.0-1.2) Aspartate Amino Transf (AST/SGOT) 15U/L (0-50) Alanine Aminotransferase (ALT/SGPT) 20U/L (0-32) Alkaline Phosphatase 58U/L (25-165) Total Protein 4.6g/dL (6.4-8.4) Albumin 2.5g/dL (3.4-5.0) Microbiology 12/07/16 Blood Culture - Final, Complete NO GROWTH AFTER 5 DAYS 12/07/16 Campylobacter (PCR) - Final, Complete Not Detected 12/07/16 Clostridium difficile Toxin A&B (M) - Final, Complete Not Detected 12/07/16 Plesiomonas shigelloides (PCR) - Final, Complete Not Detected 12/07/16 Salmonella (PCR)(IRIS) - Final, Complete Not Detected 12/07/16 Yersinia enterocolitica (PCR) - Final, Complete Not Detected 12/07/16 Vibrio Species (PCR) - Final, Complete Not Detected 12/07/16 Vibrio Cholerae (PCR) - Final, Complete Not Detected 12/07/16 Enteroaggregative E. coli (PCR) - Final, Complete Not Detected 12/07/16 Enteropathogenic E. coli (PCR) - Final, Complete Not Detected 12/07/16 Enterotoxigenic E. coli (PCR) - Final, Complete Not Detected 12/07/16 E. coli Shiga-like Toxin (PCR) - Final, Complete Not Detected 12/07/16 Escherichia coli 0157 (PCR) - Final, Complete Not Detected 12/07/16 Enteroinvasive E. coli/Shigella PCR - Final, Complete Not Detected 12/07/16 Cryptosporidium (PCR) - Final, Complete Not Detected 12/07/16 Cyclospora cayetanensis (PCR) - Final, Complete Not Detected 12/07/16 Entamoeba histolytica (PCR) - Final, Complete Not Detected 12/07/16 Giardia lamblia (PCR) - Final, Complete Not Detected 12/07/16 Adenovirus Type F 40/41 (PCR) - Final, Complete Not Detected 12/07/16 Astrovirus (PCR) - Final, Complete Not Detected 12/07/16 Norovirus (PCR) - Final, Complete Not Detected 12/07/16 Rotavirus A (PCR) - Final, Complete Not Detected 12/07/16 Sapovirus I/II/IV/V (PCR) - Final, Complete 12/09/16 Urine Culture - Final, Complete Mixed Urogenital Joanna Result Diagram: 12/13/1660112/13/16601 Assessment & Plan 71-year-old female with history of psoriasis presents with complaint of mucousy bloody diarrhea since early November 2016. 1 Acute on chronic diarrhea, present on admission. Seems to be improving - Stool PCR negative - Post colonoscopy on 12/09: "Marked erythema and ulcerations with friability from 90 cm to the rectum concerning for ulcerative colitis status post biopsy" - Appreciate GI consult. Will followup with recommendations: - Lialda 4.8 g by mouth once a day. - Continue steroids now staring Prednisone 60 mg PO, tapering instructions as per GI - Serial abdominal exams - Monitor daily frequency of bm. - Pathology "negative for dysplasia and malignancy" - Nutritional consult requested by patient - Follow up with GI at [facility] as patient request 2 Acute fever/chills, not present on admission. Unclear source. Initially suspected urinary tract infection but urine culture looks like contamination - CXR 12/09/16: "Left basilar atelectasis versus aspiration or pneumonia" although clinically without any respiratory symptoms - Stopped IV Ceftriaxone on 12/11 that was started for presumed UTI as source of fever and infection (started on 12/09) - Continue with supportive care 3 Acute hypokalemia. Present on admission. Resolved - Due to GI looses via diarrhea 4 Psoriasis. Presumed stable - Further followup with dermatology as outpatient. - Acetaminophen as needed for mild pain/fever/headache - Bowel regimen as needed - Antiemetic as needed Patient admitted under inpatient status with expected length of stay > 2 midnights for severity of present symptoms, complexities of treatment plan and risk for adverse event Dispo: likely tomorrow . VTE Prophylaxis: Sub-Q Enoxaparin Resuscitation Status: CPR: Attempt Resuscitation Avila Madison MD Dec 13, 2016 12:55
--- NOTE | 2016-12-13 16:21 | NUR ---
RX/MEDICATIONS P-Patient having anxiety about discharge, cost prescriptions, and effects of steroids. I- Teaching done on steroids (side effects, tapers). Care notes provided on medications. MD asked to write prescriptions for OTC medications to help defer costs. Information given on inflammation and clinical resource contact provided to patient. E-Patient appear calmed and reassured by new resources and information. Verbalized understanding and forming discharge plan. .
[2016-12-13 16:30] VITALS: BP 117/74; PULSE 82; RESP 16; O2SAT 95
[2016-12-13 20:35] VITALS: BP 114/71; PULSE 74; RESP 16; O2SAT 92
[2016-12-13] MEDS: MESALAMINE RECTAL SCH (21:00)
[2016-12-14] MEDS: Sodium Chloride LOK Flush 10 mL Syringe IVFLUSH SCH ×2 (00:30→07:54)
[2016-12-14] MEDS: 0.9% NaCl + KCl 20 mEq/L 1,000 ML IV SCH ×2 (00:35→10:35)
[2016-12-14 05:24] VITALS: BP 97/57; PULSE 59; RESP 16; O2SAT 92
--- NOTE | 2016-12-14 06:27 | NUR ---
Diet Patient discussed concerns about new low fiber diet has consulted [employer], states she will continue to read up on the matter. No noted s/s of anxiety, agitation, or restlessness. Slept throughout night awoke few times for additional blankets. Likely to discharge this am.
[2016-12-14] MEDS: Mesalamine 1.2 Gm ER Tablet PO SCH (08:00)
[2016-12-14] MEDS: predniSONE 20 mg Tablet PO SCH (08:00)
--- NOTE | 2016-12-14 09:11 | PCM.DIMED ---
Discharge Instructions Date of Service Dec 14, 2016 Dates of Hospitalization Dec 07, 2016 at 17:53 Discharge Diagnosis Discharge Diagnosis Primary diagnosis Acute on chronic diarrhea due to Inflammatory bowel disease. Improving under therapy Acute fever/chills. Resolved Secondary diagnosis Acute hypokalemia. Psoriasis. Diet Other (low residue diet) Activity No restrictions Call your provider Fever or Chills, Vomitting Patient Instructions Take the Prednisone as directed Follow up with a Manager Sound at [facility]. You will need to call the appointment yourself Follow-up Provider: Stefan Molina MD Follow-up with PCP in: 2 weeks Avila Madison MD Dec 14, 2016 09:11
[2016-12-14] MEDS ORDERED: MESA1.2T2 PO (09:18)
[2016-12-14] MEDS ORDERED: MESA4KIT2 RECTAL (09:18)
[2016-12-14] MEDS ORDERED: PRE20 PO (09:19)
--- NOTE | 2016-12-14 10:30 | NUR ---
Social Work- Readiness for Discharge Data: EMR reviewed. Pt is on day 7 of hospitalization for colitis, diarrhea, dehydration per H&P. Pt is not medically stable at this time, pt anticipated to discharge later today. SW received call from pt requesting SW consult, SW met with pt at bedside regarding discharge plan. Pt states that she is anxious about returning home and obtaining the necessary services and financial assistance. Pt could not remember the name of the assistance she has been receiving, denied that it was [employer] or Medicaid. Pt states that she has housing assistance and copay assistance. SW validated pt's concerns about copays for prescriptions. MD to review prescriptions and make sure as many of them are generic and low cost as possible. 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 SW provided pt with resource guide and community resources. Pt denies that [facility] will be useful to her as she is not homebound. Priority Boarding pass to be provided to pt prior to discharge. Pt's anxieties were decreased when SW left the room. Pt agreeable to discharge today. Pt to discharge home with friend to transport via POV. Priority boarding pass to be provided. SW will continue to follow. 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 Plan: Community resources provided to pt. Pt to discharge home with friend to transport via POV. Priority boarding pass to be provided. SW will continue to follow. ARLEEN Villareal Addendum: 12/17/16 at 0903 by MATTHEW SPEAR SS Late Note-- When ARLEEN met with pt on 4/29/17, pt was offered [facility] and pt had declined HH services at this time. Natalie Spear MSW
--- NOTE | 2016-12-14 11:47 | NUR ---
Social Work- Discharge Data: EMR reviewed. Pt is on day 7 of hospitalization for colitis, diarrhea, dehydration per H&P. Pt to discharge today. Community resources provided to pt. Pt to discharge home with friend to transport via POV. Priority boarding pass provided. No other discharge needs known at this time. 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 Plan: Community resources provided to pt. Pt to discharge home with friend to transport via POV. Priority boarding pass provided. No other discharge needs known at this time. ARLEEN Villareal
--- NOTE | 2016-12-14 11:54 | NUR ---
Discharge Pt DC home to [facility] with a friend via private vehicle. All belongings with pt along with prescriptions. [facility] called in [place] to confirm her prescriptions were available and prescriptions were faxed there. 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 Valdez. Dietary consulted on low fiber diet. Teaching performed on enema administration. Pt is comfortable going home at this time.
--- NOTE | 2016-12-14 23:03 | PCM.DC.MED ---
Discharge Summary Date of Service Dec 14, 2016 Dates of Hospitalization Date of Hospital Admission Dec 07, 2016 at 17:53 Date of Discharge: Dec 14, 2016 Providers: Admitting Physician: Lesvia Solis MD Primary Care Physician: Stefan Molina MD Attending Physician: Lesvia Solis MD Diagnosis at Time of Discharge Diagnosis at Time of Discharge Primary diagnosis Acute on chronic diarrhea due to Inflammatory bowel disease. Improving under therapy Acute fever/chills. Resolved Secondary diagnosis Acute hypokalemia. Psoriasis. Consultations Gastroenterology: Dr Valdez Brief History Sudden 1st week in November of diarrhea preceeded by abd cramping. Small volume like a few TBSP. Freq, up to 10 per day. Worse with solid food so mostly liquids. Possible weight loss of 10 pounds or more. She says stool is small flakes of light brown "laced with mucus and blood tinged". Has pink tinged mucus when she wipes. Does not have abd pain other than the cramping before the BM's. Has some generalized muscle aches. Last sev days occl fever to 101- 102 with feeling of slight coolness alternating with being a little overheated. Infreq nausea with dry heaves, maybe twice the past week. Feels more "spacey". 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 No recent travel or camping. Saw Dr Sheppard 3 days ago and stool tests ordered, she has not heard results. She didn't get the blood test (TSH) he ordered yet. SHe has f/u appt December 25 to schedule colonoscopy. Hospital Course 71-year-old female with history of psoriasis presents with complaint of mucousy bloody diarrhea since early November 2016. 1 Acute on chronic diarrhea, present on admission. Seems to be improving - Stool PCR negative ruling out infectious gastroenteritis - Post colonoscopy on 12/09: "Marked erythema and ulcerations with friability from 90 cm to the rectum concerning for ulcerative colitis status post biopsy" - Appreciate GI consult. Likely diagnosis is Inflammatory bowel disease - Lialda 4.8 g by mouth once a day. - Continue steroids now staring Prednisone 60 mg PO x 2 weeks then decrease dose by 5 mg per week till finished - low residue diet - Pathology "negative for dysplasia and malignancy" - Follow up with GI at [facility] as patient request 2 Acute fever/chills, not present on admission. Unclear source. Initially suspected urinary tract infection but urine culture looks like contamination - CXR 12/09/16: "Left basilar atelectasis versus aspiration or pneumonia" although clinically without any respiratory symptoms - Stopped IV Ceftriaxone on 12/11 that was started for presumed UTI as source of fever and infection (started on 12/09) 3 Acute hypokalemia. Present on admission. Resolved - Due to GI looses via diarrhea 4 Psoriasis. Presumed stable - Further followup with dermatology as outpatient. Exam Vital Signs (Last) Date Time Temp Pulse Resp B/P Pulse Ox O2 Delivery O2 Flow Rate FiO2 12/14/16 05:24 36.7 59 16 97/57 92 Room Air 12/09/16 09:08 2 Exam General: Alert, Oriented X3, Cooperative, No acute Distress Eyes: PERRLA, Scleral Anicteric Mouth: Mouth Normal, Mucous Membranes Moist/[place] Neck: Supple, no Thyromegaly, trachea central. Chest & Lungs: Clear to auscultation & percussion, No adventitious breath sounds, no crackles, no wheeze Cardiovascular: Normal S1, Normal S2, No Murmurs/Rubs/Gallops, Regular Rate/ Rhythm Pulses: Radial (present and equal), Dorsalis Pedi (present and equal) Abdomen: Soft, Non-tender, Non-distended, Normoactive bowel tones. Musculoskeletal: Unremarkable. Normal range of motion, no swollen or erythematous joints Extremities: No edema, no cyanosis, no clubbing. Skin: No rashes. Warm and dry, no erythematous areas Neurological: Grossly neurologically intact, Normal Speech, Sensation Intact Lymphatic: Lymph nodes Cervical and Axillary not palpable. Test 12/07/16 15:20 12/08/16 06:20 12/09/16 10:44 12/10/16 05:33 Lactic Acid Level 1.0mmol/L (0.4-2.0) Lipase 6U/L (13-60) Thyroid Stimulating Hormone (TSH) 3.290uIU/mL (0.450-4.500) Urine Color Yellow (YELLOW) Urine Appearance Hazy (CLEAR,HAZY) Urine pH 6.0 (5.0-8.0) Urine Specific [place] 1.020 (1.003-1.035) Urine Protein Negativemg/dL (NEG,TRACE) Urine Glucose (UA) Negativemg/dL (NEGATIVE) Urine Ketones Negativemg/dL (NEGATIVE) Urine Occult Blood Small (NEGATIVE) Urine Nitrite Negative (NEGATIVE) Urine Bilirubin Negative (NEGATIVE) Urine Urobilinogen 2.0mg/dL (NORMAL) Urine Leukocyte Esterase Small (NEGATIVE) Urine RBC 0-2/hpf (0-2) Urine WBC 6-10/hpf (0-5) Urine Epithelial Cells Occasional/hpf (NONE-MOD) Urine Crystals None seen (NONE SEEN) Urine Bacteria Moderate/hpf (NONE-FEW) Urine Hyaline Casts None/lpf (NONE) Urine Granular Casts None seen (NONE SEEN) Urine Waxy Casts None seen (NONE SEEN) Urine Red Blood Cell Casts None seen (NONE SEEN) Urine White Blood Cell Casts None seen (NONE SEEN) Urine Mucus Present (None Seen) Urine Trichomonas None seen (NONE SEEN) Urine Yeast None (NONE SEEN) Urinalysis Comment None Urine Culture Reflexed Indicated Prothrombin Time 12.5sec (8.1-12.5) Prothromb Time International Ratio 1.16ratio Activated Partial Thromboplast Time 36.4sec (22.8-33.0) Procalcitonin 0.68ng/mL (0.00-0.08) Test 12/11/16 07:05 12/13/16 06:02 Magnesium Level 2.1mg/dL (1.6-2.6) White Blood Count 10.0th/mm3 (3.8-10.1) Red Blood Count 3.83mil/mm3 (3.90-5.20) Hemoglobin 11.7g/dL (12.0-15.6) Hematocrit 34.6% (35.0-46.0) Mean Corpuscular Volume 90.3fL (81-100) Mean Corpuscular Hemoglobin 30.5pg (27.0-35.0) Mean Corpuscular Hemoglobin Concent 33.8% (32.0-37.0) Red Cell Distribution Width 12.3% (12.3-15.4) Platelet Count 337bil/L (150-400) Neutrophils (%) (Auto) 77% (40-74) Lymphocytes (%) (Auto) 18% (14-46) Monocytes (%) (Auto) 2% (4-12) Eosinophils (%) (Auto) 0% (0-5) Basophils (%) (Auto) 0% (0-3) Metamyelocytes % 1% (0-0) Myelocytes % 2% (0-0) Sodium Level 142mEq/L (134-144) Potassium Level 3.5mEq/L (3.5-5.2) Chloride Level 106mEq/L (97-108) Carbon Dioxide Level 26mmol/L (18-29) Blood Urea Nitrogen 8mg/dL (8-27) Creatinine 0.50mg/dL (0.57-1.00) Estimat Glomerular Filtration Rate 175mL/min (>59) Glucose Level 136mg/dL (60-99) Calcium Level 8.4mg/dL (8.5-10.1) Total Bilirubin 0.3mg/dL (0.0-1.2) Aspartate Amino Transf (AST/SGOT) 15U/L (0-50) Alanine Aminotransferase (ALT/SGPT) 20U/L (0-32) Alkaline Phosphatase 58U/L (25-165) Total Protein 4.6g/dL (6.4-8.4) Albumin 2.5g/dL (3.4-5.0) Discharge Medications Discharge Medications Furosemide (Furosemide) 20 Mg Tab 20 MG PO DAILY (Reported) Mesalamine (Lialda) 1.2 Gm Tablet.dr 4.8 GM PO DAILY Prescribed by: ZEV DICK MD Mesalamine W/Cleansing Wipes (Rowasa 4 gm/60 ml Enema Kit) 4 Gm/60 Ml Kit 6 GM RECTAL HS Prescribed by: ZEV DICK MD Prednisone (PredniSONE) 20 Mg Tablet 60 MG PO DAILY Prescribed by: ZEV DICK MD Followup Plan Discharge Diet: Other (low residue diet) Discharge Activity: No restrictions Patient Instructions Take the Prednisone as directed Follow up with a Food And Beverage Checker at [facility]. You will need to call the appointment yourself Follow-up Provider: Stefan Molina MD Follow-up with PCP in: 2 weeks Time spent 40 minutes spend copies to: Stefan Molina MD, Malik MD Dec 14, 2016 09:40
== END 2016-12-14 11:45 | disposition home or self-care (01) | DRG 392 ==
LOC: SED 14:28 → OSC 17:53 → OBSVTOIN 17:53 → INTOOBSV 17:53 → OSC 17:56
PROVIDERS: ADMIT Internal Medicine; ATTEND Internal Medicine
PROC: 0DBM8ZX Excision of Descending Colon, Via Natural or Artificial Opening Endoscopic, Diagnostic (ICD-10-PCS; principal; 2016-12-09 08:00)
PROC: 0DBB8ZX Excision of Ileum, Via Natural or Artificial Opening Endoscopic, Diagnostic (ICD-10-PCS; 2016-12-09 08:00)
DX: K52.9 Noninfective gastroenteritis and colitis, unspecified (principal); E87.6 Hypokalemia; R63.4 Abnormal weight loss; R50.9 Fever, unspecified